=== PATIENT | female | born 1950 | race Caucasian/White ===

== ENCOUNTER → 2016-07-28 | Outpatient (CLI) | payer OTHER | LOC: CIMAGING 10:18 | DX: Z12.31 Encounter for screening mammogram for malignant neoplasm of breast (principal); Z80.3 Family history of malignant neoplasm of breast | CPT/HCPCS: G0202 ==

== ENCOUNTER → 2017-03-19 | Outpatient (CLI) | payer OTHER | LOC: CIMAGING 15:17 | PROVIDERS: ATTEND Family Medicine | DX: R91.1 Solitary pulmonary nodule (principal); J44.9 Chronic obstructive pulmonary disease, unspecified | CPT/HCPCS: 71020-PO ==

== ENCOUNTER → 2017-07-14 | Outpatient (CLI) | payer OTHER | LOC: CIMAGING 10:35 | PROVIDERS: ATTEND Family Medicine | DX: R91.1 Solitary pulmonary nodule (principal); F17.210 Nicotine dependence, cigarettes, uncomplicated | CPT/HCPCS: 71250-PO ==

== ENCOUNTER 2017-08-25 12:38 | Day surgery (SDC) | payer OTHER ==
[2017-08-25] MEDS ORDERED: NS 500 ML IV SCH (13:15)
[2017-08-25] MEDS ORDERED: LIDOCAINE 1% 2 ML INJ ID ONE (13:22)
[2017-08-25] MEDS ORDERED: fentaNYL 100 MCG/2 ML INJ ONE (13:35)
[2017-08-25] MEDS ORDERED: MIDAZOLAM 2 MG/2 ML VIAL ONE ×2 (13:35)
[2017-08-25] MEDS ORDERED: LIDOCAINE 2% JELLY 5 ML TUBE ONE (13:37)
[2017-08-25] MEDS ORDERED: ALBUTEROL 3 ML DEYVIAL ONE (13:37)
[2017-08-25] MEDS ORDERED: LIDOCAINE 1% 300 MG/30 ML SDV ONE (13:38)
[2017-08-25] MEDS ORDERED: LIDOCAINE HCL 4% TOPICAL SOLN 50ML ONE (13:39)
[2017-08-25 13:40] VITALS: PULSE 57; TEMP 97.9
--- NOTE | 2017-08-25 14:24 | PDPROPOC ---
Sedation Plan of Care Sedation Plan of Care: vital signs stable, mental status noted, patient educated of risks, benefits, alternatives, patient can tolerate sedation ASA Classification: ASA 2 Planned drugs: fentanyl, midazolam Mallampati Score: Class 1 Mallampati Reference Image: Patient passed 3-3-2 rule?: Yes
--- NOTE | 2017-08-25 14:24 | PDHPUP ---
History & Physical Update H&P update statement: This history and physical update is based on an assessment of the patient which was completed after admission or registration (within 24 hours), but prior to the surgery/procedure. See note on Shola. H&P changes: None
[2017-08-25 15:56] VITALS: RESP 16
[2017-08-25 15:57] VITALS: BP 165/91; O2SAT 94
--- NOTE | 2017-08-25 19:09 | GPN ---
[f rep st] PROCEDURE NOTE DATE OF PROCEDURE: 08/25/2017 PROCEDURE: Bronchoscopy. INDICATION: Pulmonary nodules, possibly inflammatory, possibly malignant in a 67-year-old smoker. PROCEDURE NOTE: The procedure was performed in the endoscopy unit in a negative pressure room. N95 masks were worn. Appropriate time-out was performed. Informed consent was obtained from the patient . Topical anesthesia consisted of approximately 20 cc of 1% lidocaine. Intravenous sedation include d 3.5 mg of Versed and 100 mcg of fentanyl. Fiberoptic bronchoscope was passed via bite block orally into the larynx. The vocal cords were obser emmie. These move normally with cough and respiration. The bronchoscope was then advanced into the tr achea and in the lower tracheobronchial tree bilaterally. All areas were observed to at least the fi rst subsegmental level. Anatomy was normal bilaterally. There were some relatively minimal secretio ns found bilaterally. These were easily removed with suction and washings. Bronchoalveolar lavage w as performed from the right upper lobe, left upper lobe, left lower lobe and right lower lobe. Sampl es were combined. In the left upper lobe between the anterior segment and the superior segment, the mucosa appeared somewhat thickened, but relatively normal. It was slightly friable in this area. A brush biopsy sample was obtained. The patient tolerated the procedure well. There were no complications. Vital signs and oxygen satur ations on supplemental oxygen remained normal throughout the procedure. Bleeding was minimal, less t marin a few cubic centimeters. Appropriate samples were sent to the laboratory for full cultures and f or cytologies. IMPRESSION: 1. Normal endobronchial anatomy, with the exception of some mild mucosal thickening related to the l eft upper lobe as described above. 2. Relatively minimal secretions were found bilaterally. 3. Cultures and cytologies were obtained via bronchoalveolar lavage and bronchial washing samples bi laterally. Findings will be awaited. /[id number]/MODL
== END 2017-08-25 16:22 | disposition home or self-care (01) ==
LOC: FSGY 12:38
PROVIDERS: ATTEND Internal Medicine Pulmonary Disease
PROC: 0B968ZX Drainage of Right Lower Lobe Bronchus, Via Natural or Artificial Opening Endoscopic, Diagnostic (ICD-10-PCS; principal; 2017-08-25 14:00)
PROC: 0B948ZX Drainage of Right Upper Lobe Bronchus, Via Natural or Artificial Opening Endoscopic, Diagnostic (ICD-10-PCS; principal; 2017-08-25 14:00)
PROC: 0BB88ZX Excision of Left Upper Lobe Bronchus, Via Natural or Artificial Opening Endoscopic, Diagnostic (ICD-10-PCS; principal; 2017-08-25 14:00)
PROC: 0B9B8ZX Drainage of Left Lower Lobe Bronchus, Via Natural or Artificial Opening Endoscopic, Diagnostic (ICD-10-PCS; principal; 2017-08-25 14:00)
PROC: 0B988ZX Drainage of Left Upper Lobe Bronchus, Via Natural or Artificial Opening Endoscopic, Diagnostic (ICD-10-PCS; principal; 2017-08-25 14:00)
DX: R91.8 Other nonspecific abnormal finding of lung field (principal); F17.210 Nicotine dependence, cigarettes, uncomplicated; J44.9 Chronic obstructive pulmonary disease, unspecified
CPT/HCPCS: J0171; J2250; J3010; J7613

== ENCOUNTER 2017-10-19 13:23 | Day surgery (SDC) | payer OTHER ==
[2017-10-19] MEDS ORDERED: EPINEPHrine 1 MG/ML INJ ONE (14:11)
[2017-10-19] MEDS ORDERED: LIDOCAINE 2% JELLY 5 ML TUBE ONE (14:12)
[2017-10-19] MEDS ORDERED: LIDOCAINE 1% 300 MG/30 ML SDV ONE (14:12)
[2017-10-19] MEDS ORDERED: ALBUTEROL 3 ML DEYVIAL ONE (14:12)
[2017-10-19] MEDS ORDERED: MIDAZOLAM 2 MG/2 ML VIAL ONE (14:24)
[2017-10-19] MEDS ORDERED: fentaNYL 100 MCG/2 ML INJ ONE (14:24)
[2017-10-19] MEDS ORDERED: fentaNYL 100 MCG/2 ML INJ IVP ONE (14:47)
[2017-10-19] MEDS ORDERED: LIDOCAINE 2% JELLY 5 ML TUBE TP ONE (14:47)
[2017-10-19] MEDS ORDERED: LIDOCAINE 1% 300 MG/30 ML SDV IH ONE (14:47)
[2017-10-19] MEDS ORDERED: MIDAZOLAM 2 MG/2 ML VIAL IVP ONE (14:47)
[2017-10-19] MEDS ORDERED: EPINEPHrine 1 MG/ML INJ IRR ONE (15:08)
--- NOTE | 2017-10-19 15:23 | PDHPUP ---
History & Physical Update H&P update statement: This history and physical update is based on an assessment of the patient which was completed after admission or registration (within 24 hours), but prior to the surgery/procedure. H&P update: H&P reviewed & patient examined, no change in patient's condition since H&P completed (For bronchoscopy)
--- NOTE | 2017-10-19 16:12 | GPN ---
[f rep st] PROCEDURE NOTE DATE OF PROCEDURE: 10/19/2017 PROCEDURE: Bronchoscopy. INDICATION: Re-evaluation of a left upper lobe lesion. Previous bronchoscopy revealed abnormal tiss ue at the 1st bifurcation in the left upper lobe. Cytologies were suspicious for possible malignancy , squamous cell carcinoma, however, because of inflammatory changes and the small amount of cells obt ained pathology felt that more tissue was needed. This was the recommendation from the Cancer Confer ence/Tumor Board. PROCEDURE NOTE: The procedure was performed in the endoscopy unit. Following informed consent, appr opriate time-out, and intravenous sedation with a total of 4 mg of Versed and 100 mcg of fentanyl and using 4% lidocaine to anesthetize the posterior oropharynx and approximately 25 cc of lidocaine to t he lower tracheobronchial tree. The fiberoptic bronchoscope was passed via a bite block orally into the larynx. The vocal cords were identified. They moved normally with respiration and cough. The b ronchoscope was then advanced into the trachea and in the lower tracheobronchial tree bilaterally. A ll areas were observed to at least the segmental level. Anatomy was normal bilaterally except for th e left upper lobe. The 1st leonard there was splayed with abnormal tissue. Washings, brushings, and endobronchial biopsies were obtained from this area. The washings were combined with washings from t he left lower lobe and left side as well. Samples were sent for aerobic culture, cytologies and hist ology. The patient tolerated the procedure well. There were no complications. Oxygen saturations on supple mental oxygen and vital signs remained normal throughout the procedure. IMPRESSION: Left upper lobe endobronchial abnormality as described above, suspicious for malignancy. Further samples were obtained today. /[id number]/MODL
--- NOTE | 2017-10-19 17:13 | PDHOMEO2F ---
Home Oxygen Face to Face Home Orders: I certify that a physician or a nurse practitioner or physician's delivery driver assistant has had a [id number] encounter with this patient on the date of this order due to the diagnosis listed, which relates to the primary reason the patient requires home oxygen. Alternative treatments have been tried, or considered, and deemed ineffective. It is anticipated that supplemental oxygen will result in improvement with treatment. Home oxygen qualifying diagnosis: COPD Home oxygen secondary diagnosis: Lung Cancer SpO2 on room air (%): 84% Frequency of home oxygen needed: with activity, continuous Home oxygen liters per minute: 2L Home oxygen delivery device: nasal cannula Concentrator: Yes E-tanks for mobility and back up: Yes If ordering portable O2, is the patient mobile in the home?: Yes I certify that, based on these findings, the home oxygen is medically necessary for this patient for the following length of time. Length of time home oxygen needed: 99 years Home Oxygen Comment: Nocturnal average oxygen saturation throughout the night is 86%.
[2017-10-19 17:48] VITALS: BP 160/89
== END 2017-10-19 17:54 | disposition home or self-care (01) ==
LOC: FSGY 13:23
PROVIDERS: ATTEND Internal Medicine Pulmonary Disease
PROC: 0BB88ZX Excision of Left Upper Lobe Bronchus, Via Natural or Artificial Opening Endoscopic, Diagnostic (ICD-10-PCS; principal; 2017-10-19 14:30)
DX: D02.22 Carcinoma in situ of left bronchus and lung (principal); J44.9 Chronic obstructive pulmonary disease, unspecified; F17.210 Nicotine dependence, cigarettes, uncomplicated
CPT/HCPCS: J0171; J2250; J3010; J7613

== ENCOUNTER 2018-07-02 20:09 | Emergency (ER) | payer OTHER ==
[2018-07-02] MEDS ORDERED: CEPHALEXIN 500 MG CAP PO ONE (20:40)
[2018-07-02] MEDS ORDERED: CEPHALEXIN 500MG PREPACK#4 BTL TAKEHOME ONE (20:40)
--- NOTE | 2018-07-02 20:50 | EDPHY ---
H & P Time Seen by Provider: 07/02/18 20:18 HPI/ROS: HPI Red swelling on arm. 68-year-old female by private vehicle with her friend. This patient has a history of lung cancer. She is currently getting chemotherapy. She had 2 IV injections of a chemotherapeutic agent which she does not know the name of about 2 weeks ago administered by her oncologist Dr. Acosta. These injections were given into her right upper extremity. She reports that tonight when she returned home from work she noticed an isolated red swollen patch mid dorsal forearm. She denies any known history of trauma but thinks that she may have scraped her arm against something. She states that the area of erythema and swelling is different from the area of vascular injection for her chemotherapy 2 weeks ago. She denies fever. No loss of sensation or weakness in her right upper extremity. She has no other complaints. ROS: Constitutional: No fever, no chills. No weakness. Eyes: No discharge. No changes in vision. ENT: No sore throat. No nasal congestion or rhinorrhea. Respiratory: Chronic cough. No shortness of breath. Cardiac: No chest pain, no palpitations. Gastrointestinal: No abdominal pain, no vomiting, no diarrhea. Genitourinary: No hematuria. No dysuria or increased frequency with urination. Musculoskeletal: No back pain. No neck pain. No myalgias or arthralgias. Skin: As above. Neurological: No headache. No focal weakness or altered sensation. Past medical history: Lung cancer diagnosed September of 2017. She is being treated at [facility] by oncologist Dr. Walker. She also has a history of COPD and epilepsy. As well as hypertension. Social history: Former smoker. No alcohol. She is here with her friend. Physical Exam: General Appearance: Alert, she is anxious but not in distress. This patient is responding to questions appropriately and in full sentences. This patient appears well-hydrated and well-nourished. Eyes: Pupils equal and round no pallor or injection. No lid edema, erythema or injection. Right upper extremity exam: Significant for a patch of mild swelling and erythema about 3 cm x 4 cm, mid forearm dorsal radial aspect. There is a tiny 1 -2 mm abrasion at its nidus. There is no fluctuance or evidence of abscess. No petechiae. There is no edema beyond erythema. It is not significantly warm to the touch. The right upper extremity in comparison to the left upper extremity shows no diffuse asymmetry or swelling. The right upper extremity is neurovascularly intact. Neurological: Motor sensory function is grossly intact. Cranial nerves are normal. Gait is normal. Skin: Warm and dry, no rashes. Musculoskeletal: Neck is supple and nontender. Extremities are symmetrical. All joints range without pain or impingement. Psychiatric: No agitation. No depression. Database: EKG: Imaging: Procedures: Emergency department course: Triage vital signs reviewed. She is afebrile. She is hypertensive. I think her blood pressure is elevated significantly secondary to her anxiety. Her presentation is consistent with a localized inflammatory reaction versus an early cellulitis. Because she is on chemotherapy and therefore immune compromise, I discussed starting her on an antibiotic. She endorses this plan. She will be started on Keflex 500 mg to be taken every 6 hr in the emergency department. Plan will be to have her follow up with her oncologist on Wednesday for re-evaluation. She will call her oncologist tomorrow. She has his cell phone number. She feels comfortable going home with her friend. I have demarcated the area of erythema. Return to emergency department precautions were thoroughly reviewed with the 2 of them. All of their questions were answered. The patient was discharged home in good condition with her friend. Differential Diagnosis: The differential diagnosis on this patient includes but is not limited to early cellulitis, localized inflammatory reaction. Medication reaction secondary to chemotherapy, DVT, hemorrhagic etiology unlikely. This represents a partial list of diagnoses considered. These considerations are based on history, physical exam, past history, reassessment and diagnostic testing. Smoking Status: Heavy smoker Constitutional: Initial Vital Signs Temperature (C) 36.5 C 07/02/18 20:20 Heart Rate 56 L 07/02/18 20:20 Respiratory Rate 16 07/02/18 20:20 Blood Pressure 198/98 H 07/02/18 20:20 O2 Sat (%) 96 07/02/18 20:20 O2 Delivery Mode Room Air Allergies/Adverse Reactions: No Known Allergies Allergy (Verified 07/02/18 20:18) Home Medications: Medication Instructions Recorded Benzonatate PO PRN 08/11/17 Carbamazepine BID 08/11/17 Proair Hfa PRN 08/11/17 Qvar IH BID 08/11/17 Tylenol Extra Strength PO PRN 08/11/17 Cephalexin [Keflex (*)] 500 mg PO Q6 7 Days cap 07/02/18 Departure - Departure Disposition: Home, Routine, Self-Care Clinical Impression: Localized swelling of forearm Condition: Good Instructions: Cellulitis (ED) Additional Instructions: Read and follow provided instructions. Follow-up with your primary oncologist, as discussed on Wednesday to be rechecked in the office. Call him tomorrow to explain why you were seen in the emergency department and tell him that I have started you on an antibiotic and that I want you to be seen in his office on Wednesday. Take antibiotic as prescribed. Return to the emergency department for redness and swelling that is going beyond the demarcation lines that I ofelia on your forearm, fever, pain or other serious concerns. Referrals: Demetrice Villar MD [Primary Care Provider] - As per Instructions Terrance Acosta MD [Medical Doctor] - As per Instructions Prescriptions: Cephalexin [Keflex (*)] 500 mg PO Q6 7 Days cap
[2018-07-02 21:17] VITALS: BP 196/100
== END 2018-07-02 21:10 | disposition home or self-care (01) ==
LOC: CED 20:09
DX: R60.0 Localized edema (principal); C34.90 Malignant neoplasm of unspecified part of unspecified bronchus or lung
CPT/HCPCS: 99283-ER

== ENCOUNTER 2018-09-15 11:28 | Emergency (ER) | payer OTHER ==
[2018-09-15] MEDS ORDERED: ASPIRIN 81 MG CHEWABLE TAB PO ONE (12:06)
== END 2018-09-15 13:20 | disposition home or self-care (01) ==
DX: R07.89 Other chest pain (principal); J44.9 Chronic obstructive pulmonary disease, unspecified; I10 Essential (primary) hypertension; Z85.118 Personal history of other malignant neoplasm of bronchus and lung; Z87.891 Personal history of nicotine dependence

== ENCOUNTER → 2018-10-04 | Outpatient (CLI) | payer OTHER | LOC: CIMAGING 12:22 | PROVIDERS: ATTEND Family Medicine | DX: R05 Cough (principal); R04.2 Hemoptysis | CPT/HCPCS: 71046-PO ==

== ENCOUNTER → 2018-11-08 | Outpatient (CLI) | payer OTHER | LOC: CIMAGING 10:58 ==

== ENCOUNTER 2018-11-11 12:47 | Day surgery (SDC) | payer OTHER | END 2018-11-11 16:20 | disposition home or self-care (01) | LOC: FSGY 12:47 ==